=== PATIENT | female | born 1960 | race Caucasian/White ===

== ENCOUNTER 2016-11-18 17:04 | Emergency (ER) | payer BC ==
[~2016-11-18 17:04] MED LIST: Donnatal Elixir 16.2 MG/5 ML UDCUP ONE; Iopamidol 370 76% 100 ML VIAL ONE
[2016-11-18] MEDS ORDERED: Ondansetron ODT 4 MG TAB ONE (17:26)
[2016-11-18] MEDS ORDERED: Famotidine 20 MG TAB ONE (17:26)
[2016-11-18 17:38] LABS: #Basophils 0.1 thou/uL (0.0-0.2); #Eosinphils 0.4 thou/uL (0.0-0.7); #Lymphocytes 2.8 thou/uL (1.20-3.40); #Monocytes 0.5 thou/uL (0.11-0.59); #Neutrophils 3.6 thou/uL (1.40-6.50); %Basophils 1.6 % (0.0-1.0); %Eosinophils 5.8 % (0.0-10.0); %Lymphocytes 37.2 % (21.0-51.0); %Monocytes 7.3 % (0.0-10.0); Hemoglobin 11.7 g/dL (12.0-16.0); Mean Corpuscular HGB CONC 32.4 g/dL (32.0-36.0); Mean Corpuscular Hemoglobin 28.7 pg (27.0-31.0); Mean Corpuscular Volume 88.5 fl (81.0-99.0); Mean Platelet Volume 5.9 fL (7.4-10.4); Platelet Count 347 thou/uL (130-400); Red Blood Cell (RBC) Count 4.09 mill/uL (4.20-5.40); White Blood Cell (WBC) Count 7.4 thou/uL (4.8-10.8)
--- NOTE | 2016-11-18 17:57 | RAD ---
PORTABLE AP CHEST X-RAY 11/18/16 HISTORY: Small bowel obstruction. COMPARISON: 05/01/15. There is a metallic recording device again overlying the left mid lung zone. There is evidence of pr ior granulomatous disease. The cardiac silhouette and pulmonary vasculature are within normal limits . The lungs otherwise remain clear. Most superior aspect of each lung apex is excluded from view. Th ere has been no interval change from the prior exam. IMPRESSION: No acute cardiopulmonary process. POS: [facility]
[2016-11-18 18:02] LABS: Bilirubin Negative (Negative); Blood, Urine Negative (Negative); Glucose, Urine (Dipstick) Negative (Negative); Leukocyte Trace (Negative); Nitrite Negative (Negative); Protein, Urine (Dipstick) Negative (Neg-Trace); pH, Urine 7.5 (5.0-9.0)
[2016-11-18 18:04] LABS: Clarity Hazy (Clear)
[2016-11-18 18:04] LABS: ALT (SGPT) 11 U/L (0-55); AST (SGOT) 17 U/L (5-34); Albumin 4.2 g/dL (3.5-5.0); Alkaline Phosphatase 101 U/L (40-150); Amylase 26 U/L (25-125); Anion Gap 16 mmol/L (10-20); BUN (Urea Nitrogen) 15 mg/dL (9.8-20.1); Bilirubin, Direct 0.1 mg/dL (0.1-0.3); Bilirubin, Total Less than 0.3 mg/dL (0.2-1.2); Calc. Creatinine Clearance 0 mL/min (70-130); Calcium 9.5 mg/dL (7.8-10.44); Carbon Dioxide 23 mmol/L (22-29); Chloride 106 mmol/L (98-107); Estimated GFR-MDRD 76; Glucose 91 mg/dL (70-105); Lipase 13 U/L (8-78); Potassium 4.2 mmol/L (3.5-5.1); Protein, Total 6.6 g/dL (6.0-8.3); Sodium 141 mmol/L (136-145)
[2016-11-18 18:08] LABS: Bacteria/HPF Rare-Few HPF (None Seen); RBC/HPF 0-3 HPF (0-3); Squamous Epithelial 0-3 HPF (0-3)
[2016-11-18] MEDS ORDERED: Ketorolac Tromethamine 60 MG/2 ML VIAL ONE (18:27)
[2016-11-18] MEDS ORDERED: Donnatal Elixir 16.2 MG/5 ML UDCUP ONE (18:32)
[2016-11-18] MEDS ORDERED: Mag-Al Plus 1200 MG/1200 MG/120 MG/30 ML UDCUP ONE (18:33)
[2016-11-18] MEDS ORDERED: Lidocaine Viscous Sol 2% 15 ml UD Cup ONE (18:33)
[2016-11-18] MEDS ORDERED: Fentanyl 100 MCG/2 ML VIAL ONE ×2 (19:58→21:50)
--- NOTE | 2016-11-18 21:54 | CT ---
CT ABDOMEN AND PELVIS WITH ORAL AND IV CONTRAST 11/18/16 HISTORY: Right upper quadrant abdominal pain. FINDINGS: Comparison is made with the exam of 05/13/10. The lung bases are clear. There is a small hiatal hernia. The liver, spleen, pancreas, and adrenal g lands are unremarkable. The left kidney is normal. Postop changes of right partial nephrectomy is se en. The previously noted right renal mass has been resected. No free air, free fluid, or lymphadenopathy is noted in the abdomen or pelvis. The small bowel loops are not abnormally dilated. There are vascular calcifications without evidence of aneurysmal dilata tion of the abdominal aorta. The patient is post cholecystectomy. There are degenerative changes in the spine. No osteolytic or osteoblastic lesions are seen. A normal appearing appendix is present. IMPRESSION: 1. Hiatal hernia. 2. Status post partial right nephrectomy. 3. No evidence of acute process. POS: [facility]
--- NOTE | 2016-11-19 07:24 | RAD ---
ACUTE ABDOMINAL SERIES 11/18/16 HISTORY: Small bowel obstruction. CHEST X-RAY: Compared to study on 05/01/15. Previously noted metallic recording device lying the left lung is again present. There is evidence o f prior granulomatous disease. The lungs are clear. The cardiac silhouette and pulmonary vasculature are within normal limits. No other interval change. UPRIGHT AND SUPINE VIEWS OF THE ABDOMEN: Surgical clips overlie the right upper quadrant and medial aspect of the left mid abdomen. There are nonspecific mildly prominent loops of small bowel seen within the left lower quadrant. There is a s mall amount of retained fecal material in the ascending colon. Degenerative change are seen in the s pine. IMPRESSION: Mildly prominent gas filled loops of small bowel within the left lower quadrant. Findings are overal l nonspecific. If there is concern for bowel obstruction, followup abdominal radiographs can be perf ormed versus CT scan. POS: [facility]
== END 2016-11-18 22:12 | disposition home or self-care (01) ==
LOC: MADERS 17:04
DX: R10.11 Right upper quadrant pain (principal); Z87.891 Personal history of nicotine dependence; Z90.710 Acquired absence of both cervix and uterus
CPT/HCPCS: 36415; 74022; 74177; 80048; 80076; 81003; 81015; 82150; 83690; 85025; 96372; 96374; 96376; J1885; J3010; Q0162

== ENCOUNTER 2017-02-20 19:20 | Emergency (ER) | payer BC ==
--- NOTE | 2017-02-20 20:15 | RAD ---
EXAM: FOUR VIEWS LEFT KNEE 02/20/17 HISTORY: Injury and pain. COMPARISON: None. FINDINGS: No joint effusion. Joint spaces are preserved. No fractures or malalignment. IMPRESSION: No posttraumatic sequela. POS: [facility]
[2017-02-20] MEDS ORDERED: Ketorolac Tromethamine 60 MG/2 ML VIAL ONE (20:35)
[2017-02-20] MEDS ORDERED: Bacitracin Zinc 1 Packet ONE (20:36)
== END 2017-02-20 21:05 | disposition home or self-care (01) ==
LOC: MADERS 19:20
DX: S80.02XA Contusion of left knee, initial encounter (principal); F17.210 Nicotine dependence, cigarettes, uncomplicated; F98.8 Other specified behavioral and emotional disorders with onset usually occurring in childhood and adolescence; Z79.899 Other long term (current) drug therapy; W16.532A Jumping or diving into swimming pool striking wall causing other injury, initial encounter; Y92.34 Swimming pool (public) as the place of occurrence of the external cause
CPT/HCPCS: 96372; J1885

== ENCOUNTER 2017-03-30 06:56 | Emergency (ER) | payer BC ==
[2017-03-30] MEDS ORDERED: Sodium Chloride 0.9% 1,000 ML BAG ONE (07:21)
[2017-03-30 07:38] LABS: Clarity Clear (Clear); Glucose, Urine (Dipstick) Negative (Negative); Leukocyte Negative (Negative); Nitrite Negative (Negative); Protein, Urine (Dipstick) Negative (Neg-Trace)
[2017-03-30 07:39] LABS: Bilirubin Negative (Negative); Blood, Urine Negative (Negative)
[2017-03-30 07:42] LABS: Bacteria/HPF Rare-Few HPF (None Seen); RBC/HPF 0-3 HPF (0-3); Squamous Epithelial 0-3 HPF (0-3)
[2017-03-30] MEDS ORDERED: Ketorolac Tromethamine 30 MG/ML VIAL ONE (07:45)
[2017-03-30] MEDS ORDERED: Ondansetron HCl/PF 4 MG/2 ML Vial ONE (07:45)
[2017-03-30 07:48] LABS: #Basophils 0.2 thou/uL (0.0-0.2); #Eosinphils 0.2 thou/uL (0.0-0.7); #Lymphocytes 3.5 thou/uL (1.20-3.40); #Monocytes 0.7 thou/uL (0.11-0.59); %Basophils 1.8 % (0.0-1.0); %Eosinophils 2.2 % (0.0-10.0); %Lymphocytes 36.9 % (21.0-51.0); %Monocytes 6.8 % (0.0-10.0); %Neutrophils 52.3 % (42.0-75.0); Hemoglobin 12.4 g/dL (12.0-16.0); Mean Corpuscular HGB CONC 31.5 g/dL (32.0-36.0); Mean Corpuscular Hemoglobin 27.3 pg (27.0-31.0); Mean Corpuscular Volume 86.8 fl (81.0-99.0); Mean Platelet Volume 6.6 fL (7.4-10.4); Platelet Count 392 thou/uL (130-400); RBC Distribution Width 15.2 % (11.5-14.5); Red Blood Cell (RBC) Count 4.55 mill/uL (4.20-5.40); White Blood Cell (WBC) Count 9.5 thou/uL (4.8-10.8)
[2017-03-30 08:05] LABS: ALT (SGPT) 12 U/L (8-55); AST (SGOT) 13 U/L (5-34); Albumin 4.3 g/dL (3.5-5.0); Alkaline Phosphatase 108 U/L (40-150); Anion Gap 17 mmol/L (10-20); BUN (Urea Nitrogen) 18 mg/dL (9.8-20.1); Bilirubin, Total 0.4 mg/dL (0.2-1.2); Calc. Creatinine Clearance 0 mL/min (70-130); Calcium 9.5 mg/dL (7.8-10.44); Carbon Dioxide 24 mmol/L (22-29); Chloride 106 mmol/L (98-107); Estimated GFR-MDRD 73; Globulin 2.8 g/dL (2.4-3.5); Glucose 86 mg/dL (70-105); Potassium 4.2 mmol/L (3.5-5.1); Protein, Total 7.1 g/dL (6.0-8.3); Sodium 143 mmol/L (136-145)
--- NOTE | 2017-03-30 08:25 | CT ---
CT ABDOMEN AND PELVIS WITHOUT CONTRAST STONE PROTOCOL: HISTORY: Left upper quadrant pain radiating to the back that started this morning about 0300. 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 Diverticulosis. COMPARISON: CT abdomen and pelvis with contrast 11/18/16. FINDINGS: Similar appearance of the perifissure nodule right major fissure. No pericardial effusion. Surgical clips in the gallbladder fossa, proximal small bowel suture material as well as along the G E junction. There are partial right nephrectomy changes. No hydroureteral nephrosis or nephroureteral lithiasis. No secondary evidence of recently passed st one. No perinephric stranding. Severe degenerative disk space height loss of L4-5 and L5-S1 and T11-12. No suspicious lytic or hayes stic lesion of the skeleton otherwise. No dilated loops of large or small bowel. Appendix is felt to be seen in the right hemipelvis and a ppears normal. IMPRESSION: 1. No nephroureteral lithiasis or hydroureteral nephrosis. No secondary evidence of recently passe d stone. 2. No dilated loops of bowel to suggest obstruction. 3. No acute process within the abdomen or pelvis. POS: [facility]
[2017-03-30] MEDS ORDERED: Iopamidol 370 76% 100 ML VIAL ONE (10:02)
--- NOTE | 2017-03-30 10:43 | CT ---
CT OF THE ABDOMEN AND PELVIS WITH IV CONTRAST: INDICATION: History of left upper quadrant abdominal pain. The patient has a history of renal cell carcinoma re section from the right kidney. History of gastric bypass, cholecystectomy, and hysterectomy. CONTRAST: 100 cc of Isovue. COMPARISON: Prior CT exam dated 03/30/17 and 11/18/16. FINDINGS: There is a small-sized hiatal hernia. The gallbladder is surgically absent. There is postsurgical change from a partial right nephrectomy . The left kidney is normal-appearing. There is a 1.4 cm right-sided adrenal adenoma. There is postprocedural change of a gastric bypass. Spleen is normal-appearing. There are moderate calcifications involving the abdominopelvic vasculature. There are a few scattered diverticula involving the colon without evidence of active diverticulitis. The small bowel is normal caliber. The bladder, rectum, and perirectal soft tissues are unremarkable. There is scattered degenerative and osteoarthritic change. There is injection granulomata overlying the gluteal regions bilaterally. IMPRESSION: 1. No definite CT explanation for the patient's left upper quadrant abdominal pain. There is postp rocedural change of a gastric bypass. There is no evidence of bowel obstruction. 2. Postsurgical change of a cholecystectomy and partial right nephrectomy. No hydronephrosis is ev ident. 3. Right adrenal adenoma. 4. Hysterectomy. 5. Colonic diverticulosis without evidence of active diverticulitis. POS: [facility]
== END 2017-03-30 10:30 | disposition home or self-care (01) ==
LOC: MADERS 06:56
DX: R10.12 Left upper quadrant pain (principal); F17.210 Nicotine dependence, cigarettes, uncomplicated; Z79.899 Other long term (current) drug therapy
CPT/HCPCS: 74176; 74177; 80053; 81001; 85025; 96361; 96374; 96375; 96376; J1170; J1885; J2405; J7050

== ENCOUNTER 2017-04-01 08:50 | Emergency (ER) | payer BC ==
[~2017-04-01 08:50] MED LIST changes: -Donnatal Elixir 16.2 MG/5 ML UDCUP ONE; -Iopamidol 370 76% 100 ML VIAL ONE; +Sodium Chloride 0.9% 1,000 ML BAG ONE; +Sodium Chloride 0.9% 100 ML BAG ONE
[2017-04-01] MEDS ORDERED: Metoclopramide HCl 10 MG/2 ML VIAL ONE (09:52)
[2017-04-01] MEDS ORDERED: Ondansetron HCl/PF 4 MG/2 ML Vial ONE (09:52)
[2017-04-01] MEDS ORDERED: Ketorolac Tromethamine 30 MG/ML VIAL ONE (09:52)
[2017-04-01 10:09] LABS: Bacteria/HPF Rare-Few HPF (None Seen); Bilirubin Negative (Negative); Blood, Urine Negative (Negative); Clarity Hazy (Clear); Glucose, Urine (Dipstick) Negative (Negative); Leukocyte Negative (Negative); Nitrite Negative (Negative); Protein, Urine (Dipstick) Negative (Neg-Trace); RBC/HPF None Seen HPF (0-3); Specific Gravity, Urine 1.015 (1.005-1.030); Urobilinogen 0.2 mg/dL (0.2-1.0); WBC/HPF 0-3 HPF (0-3)
--- NOTE | 2017-04-01 10:18 | RAD ---
CHEST ONE VIEW: History: Left flank pain. Comparison: 05-01-15 FINDINGS: There is a recording device projecting over the left hemithorax. No free airspace opacity, pneumotho rax, or effusion. Granuloma project over the left upper lobe. IMPRESSION: No acute cardiopulmonary process. POS: [facility]
[2017-04-01 10:20] LABS: #Basophils 0.1 thou/uL (0.0-0.2); #Eosinphils 0.5 thou/uL (0.0-0.7); #Lymphocytes 2.7 thou/uL (1.20-3.40); #Monocytes 0.5 thou/uL (0.11-0.59); #Neutrophils 4.4 thou/uL (1.40-6.50); %Basophils 1.6 % (0.0-1.0); %Eosinophils 5.7 % (0.0-10.0); %Monocytes 6.2 % (0.0-10.0); %Neutrophils 53.5 % (42.0-75.0); Hemoglobin 11.9 g/dL (12.0-16.0); Mean Corpuscular HGB CONC 32.9 g/dL (32.0-36.0); Mean Corpuscular Hemoglobin 28.5 pg (27.0-31.0); Mean Corpuscular Volume 86.7 fl (81.0-99.0); Mean Platelet Volume 6.7 fL (7.4-10.4); Platelet Count 365 thou/uL (130-400); RBC Distribution Width 15.7 % (11.5-14.5); Red Blood Cell (RBC) Count 4.16 mill/uL (4.20-5.40); White Blood Cell (WBC) Count 8.3 thou/uL (4.8-10.8)
[2017-04-01 10:33] LABS: ALT (SGPT) 13 U/L (8-55); AST (SGOT) 13 U/L (5-34); Alkaline Phosphatase 105 U/L (40-150); Anion Gap 13 mmol/L (10-20); BUN (Urea Nitrogen) 17 mg/dL (9.8-20.1); Bilirubin, Total 0.3 mg/dL (0.2-1.2); CK (CPK) 54 U/L (29-168); Calc. Creatinine Clearance 0 mL/min (70-130); Calcium 9.1 mg/dL (7.8-10.44); Carbon Dioxide 26 mmol/L (22-29); Chloride 106 mmol/L (98-107); Estimated GFR-MDRD 82; Globulin 2.6 g/dL (2.4-3.5); Glucose 80 mg/dL (70-105); Lipase 11 U/L (8-78); Potassium 4.1 mmol/L (3.5-5.1); Protein, Total 6.6 g/dL (6.0-8.3); Sodium 141 mmol/L (136-145)
[2017-04-01 10:34] LABS: CKMB 0.9 ng/mL (0-6.6); Troponin I Less than 0.010 ng/mL (< 0.028)
[2017-04-01] MEDS ORDERED: cefTRIAXone\\ROCEPHIN 2 GM VIAL ONE ×2 (10:46)
[2017-04-01] MEDS ORDERED: metroNIDAZOLE 500 MG/100 ML BAG ONE (10:46)
== END 2017-04-01 13:35 | disposition home or self-care (01) ==
LOC: MADERS 08:50
DX: K57.92 Diverticulitis of intestine, part unspecified, without perforation or abscess without bleeding (principal); F17.210 Nicotine dependence, cigarettes, uncomplicated; Z79.899 Other long term (current) drug therapy
CPT/HCPCS: 71010; 80053; 81001; 82150; 82550; 82553; 83690; 84484; 85025; 87086; 94760; 96361; 96365; 96367; 96375; J0696; J1170; J1885; J2405; J2765; J7050

== ENCOUNTER 2017-07-23 21:23 | Emergency (ER) | payer BC ==
--- NOTE | 2017-07-23 22:45 | RAD ---
THREE VIEWS OF THE RIGHT ANKLE 07/23/17 INDICATION: Right ankle injury. IMPRESSION: No acute fracture or subluxation. COMMENTS: The ankle mortise and talar dome are preserved. Small subchondral cystic abnormality is seen involvi ng the medial talar dome likely reflecting a small osteochondral defect. There is soft tissue swellin g overlying the lateral malleolus. Hindfoot appears within normal limits. POS: [facility]
== END 2017-07-23 22:15 | disposition home or self-care (01) ==
LOC: MADERS 21:23
DX: S93.401A Sprain of unspecified ligament of right ankle, initial encounter (principal); F17.210 Nicotine dependence, cigarettes, uncomplicated; X50.1XXA Overexertion from prolonged static or awkward postures, initial encounter

== ENCOUNTER 2018-02-16 06:41 | Emergency (ER) | payer BC ==
[2018-02-16] MEDS ORDERED: Diazepam 5 MG TAB ONE (07:36)
== END 2018-02-16 08:25 | disposition home or self-care (01) ==
LOC: MADERS 06:41
DX: M62.838 Other muscle spasm (principal); F17.210 Nicotine dependence, cigarettes, uncomplicated; F98.8 Other specified behavioral and emotional disorders with onset usually occurring in childhood and adolescence; Z79.899 Other long term (current) drug therapy; Z79.891 Long term (current) use of opiate analgesic
CPT/HCPCS: 99283

== ENCOUNTER 2018-08-15 18:05 | Emergency (ER) | payer BC ==
[2018-08-15] MEDS ORDERED: Lidocaine 2% w/Epinephrine 1:200K 20 ML VIAL ONE (18:20)
[2018-08-15] MEDS ORDERED: Adacel (T-DAP) 0.5 ML SYRINGE ONE (18:20)
[2018-08-15] MEDS ORDERED: Bacitracin Zinc 1 Packet ONE (18:28)
== END 2018-08-15 18:42 | disposition home or self-care (01) ==
LOC: MADERS 18:05
DX: S61.411A Laceration without foreign body of right hand, initial encounter (principal); F98.8 Other specified behavioral and emotional disorders with onset usually occurring in childhood and adolescence; F17.210 Nicotine dependence, cigarettes, uncomplicated; Z79.899 Other long term (current) drug therapy; Z23 Encounter for immunization; W26.8XXA Contact with other sharp object(s), not elsewhere classified, initial encounter; Y92.009 Unspecified place in unspecified non-institutional (private) residence as the place of occurrence of the external cause
CPT/HCPCS: 12001; 90471; 90715

== ENCOUNTER 2019-07-16 13:02 | Emergency (ER) | payer BC ==
[2019-07-16 13:57] LABS: #Basophils 0.1 thou/uL (0.0-0.2); #Eosinphils 0.3 thou/uL (0.0-0.7); #Lymphocytes 1.5 thou/uL (1.20-3.40); #Monocytes 0.5 thou/uL (0.11-0.59); #Neutrophils 5.5 thou/uL (1.40-6.50); %Basophils 1.9 % (0.0-1.0); %Eosinophils 3.4 % (0.0-10.0); %Lymphocytes 19.2 % (21.0-51.0); %Monocytes 6.1 % (0.0-10.0); %Neutrophils 69.4 % (42.0-75.0); Hemoglobin 13.9 g/dL (12.0-16.0); Mean Corpuscular HGB CONC 31.4 g/dL (32.0-36.0); Mean Corpuscular Hemoglobin 30.9 pg (27.0-31.0); Mean Corpuscular Volume 98.5 fL (78.0-98.0); Mean Platelet Volume 6.4 fL (7.4-10.4); Platelet Count 308 thou/uL (130-400); RBC Distribution Width 11.7 % (11.5-14.5); Red Blood Cell (RBC) Count 4.49 mill/uL (4.20-5.40); White Blood Cell (WBC) Count 7.9 thou/uL (4.8-10.8)
[2019-07-16 14:16] LABS: ALT (SGPT) 14 U/L (8-55); AST (SGOT) 16 U/L (5-34); Alkaline Phosphatase 86 U/L (40-110); Anion Gap 14 mmol/L (10-20); BUN (Urea Nitrogen) 15 mg/dL (9.8-20.1); Bilirubin, Total 0.3 mg/dL (0.2-1.2); Calc. Creatinine Clearance 0 mL/min (70-130); Calcium 8.9 mg/dL (7.8-10.44); Carbon Dioxide 24 mmol/L (23-31); Chloride 108 mmol/L (98-107); Estimated GFR-MDRD 59; Globulin 2.1 g/dL (2.4-3.5); Glucose 90 mg/dL (80-115); Potassium 4.8 mmol/L (3.5-5.1); Protein, Total 6.1 g/dL (6.0-8.3); Sodium 141 mmol/L (136-145)
--- NOTE | 2019-07-16 14:16 | RAD ---
Portable frontal chest radiograph: 07/16/2019 COMPARISON: 04/01/2017 HISTORY: Chest pain FINDINGS: Lungs are clear. Heart and mediastinal contours are stable. Loop recorder overlies the left hemithorax. IMPRESSION: No acute findings.
--- NOTE | 2019-07-16 14:52 | CT ---
Head CT without contrast 07/16/2019: COMPARISON: 06/09/2009 HISTORY: Seizure TECHNIQUE: Axial CT imaging at 5 mm intervals from vertex through skull base without contrast FINDINGS: The visualized paranasal sinuses and mastoid air cells are well aerated. No displaced rafat rial fracture. No intracranial hemorrhage, midline shift, mass effect, or ventricular enlargement. IMPRESSION: No acute findings.
== END 2019-07-16 16:35 | disposition home or self-care (01) ==
LOC: MADERS 13:02
DX: G40.909 Epilepsy, unspecified, not intractable, without status epilepticus (principal)
CPT/HCPCS: 36415; 70450; 71045; 80053; 83880; 84484; 85025; 93005

== ENCOUNTER 2019-07-19 15:46 | Outpatient (CLI) | payer BC ==
--- NOTE | 2019-07-19 16:12 | RAD ---
Right shoulder 3 views HISTORY: Right shoulder pain. FINDINGS: Acromioclavicular and glenohumeral alignment are maintained. Mild osteophytosis. No acute f racture, dislocation, or aggressive osseous erosions. IMPRESSION: Mild osteoarthritic changes right shoulder. No acute osseous abnormalities are demonstrat ed.
== END 2019-07-19 15:47 | disposition home or self-care (01) ==
LOC: MADRAD 15:46
PROVIDERS: ATTEND Family Medicine
DX: M25.511 Pain in right shoulder (principal); M19.011 Primary osteoarthritis, right shoulder

== ENCOUNTER 2020-11-18 19:23 | Emergency (ER) | payer BC, SELFPAY ==
[~2020-11-18 19:23] MED LIST changes: +Iopamidol 370 76% 100 ML VIAL ONE; -Sodium Chloride 0.9% 100 ML BAG ONE
[2020-11-18] MEDS ORDERED: Ondansetron PF 4 MG/2 ML Vial ONE (19:57)
[2020-11-18 19:58] LABS: #Basophils 0.2 thou/uL (0.0-0.2); #Eosinphils 0.4 thou/uL (0.0-0.7); #Lymphocytes 2.2 thou/uL (1.20-3.40); #Monocytes 0.5 thou/uL (0.11-0.59); #Neutrophils 3.8 thou/uL (1.40-6.50); %Basophils 2.1 % (0.0-1.0); %Eosinophils 5.3 % (0.0-10.0); %Lymphocytes 31.7 % (21.0-51.0); %Monocytes 7.4 % (0.0-10.0); %Neutrophils 53.5 % (42.0-75.0); Mean Corpuscular Hemoglobin 31.8 pg (27.0-31.0); Mean Corpuscular Volume 99.5 fL (78.0-98.0); Platelet Count 321 thou/uL (130-400); RBC Distribution Width 12.2 % (11.5-14.5); Red Blood Cell (RBC) Count 4.41 mill/uL (4.20-5.40); White Blood Cell (WBC) Count 7.1 thou/uL (4.8-10.8)
[2020-11-18 20:13] LABS: ALT (SGPT) 23 U/L (8-55); AST (SGOT) 26 U/L (5-34); Albumin 4.4 g/dL (3.4-4.8); Alcohol Less than 10 mg/dL (Less than 10); Alkaline Phosphatase 96 U/L (40-110); Anion Gap 15 mmol/L (10-20); BUN (Urea Nitrogen) 18 mg/dL (9.8-20.1); Bilirubin, Total 0.3 mg/dL (0.2-1.2); Calc. Creatinine Clearance 0 mL/min (70-130); Calcium 9.3 mg/dL (7.8-10.44); Carbon Dioxide 23 mmol/L (23-31); Chloride 107 mmol/L (98-107); Globulin 2.5 g/dL (2.4-3.5); Glucose 80 mg/dL (80-115); Protein, Total 6.9 g/dL (5.8-8.1); Sodium 141 mmol/L (136-145)
[2020-11-18] MEDS ORDERED: Ketorolac Tromethamine 30 MG/ML VIAL ONE (21:24)
[2020-11-18 21:52] LABS: Bilirubin Negative (Negative); Blood, Urine Negative (Negative); Clarity Clear (Clear); Glucose, Urine (Dipstick) Negative (Negative); Ketone, Urine Negative (Negative); Leukocyte Small (Negative); Nitrite Negative (Negative); Protein, Urine (Dipstick) Negative (Neg-Trace); Urobilinogen 0.2 mg/dL (Less than 2)
[2020-11-18 21:56] LABS: Bacteria/HPF Rare-Few HPF (None Seen); RBC/HPF None Seen HPF (0-3); Squamous Epithelial 0-3 HPF (0-3)
[2020-11-18] MEDS ORDERED: Cyclobenzaprine 10 MG TAB ONE (22:01)
== END 2020-11-18 22:04 | disposition home or self-care (01) ==
LOC: MADERS 19:23
DX: S06.0X0A Concussion without loss of consciousness, initial encounter (principal); S30.1XXA Contusion of abdominal wall, initial encounter; K21.9 Gastro-esophageal reflux disease without esophagitis; F17.290 Nicotine dependence, other tobacco product, uncomplicated; Z79.899 Other long term (current) drug therapy; W55.12XA Struck by horse, initial encounter
CPT/HCPCS: 70450; 71260; 72125; 74177; 80053; 80307; 81003; 81015; 85025; 94760; 96374; 96375; J1885; J2405; J7050; Q9967

== ENCOUNTER 2021-06-02 13:33 | Emergency (ER) | payer SELFPAY ==
[2021-06-02 14:06] LABS: #Basophils 0.2 thou/uL (0.0-0.2); #Eosinphils 0.4 thou/uL (0.0-0.7); #Lymphocytes 2.7 thou/uL (1.20-3.40); #Monocytes 0.7 thou/uL (0.11-0.59); #Neutrophils 4.9 thou/uL (1.40-6.50); %Basophils 1.8 % (0.0-1.0); %Eosinophils 4.1 % (0.0-10.0); %Monocytes 7.7 % (0.0-10.0); %Neutrophils 55.4 % (42.0-75.0); Hemoglobin 14.5 g/dL (12.0-16.0); Mean Corpuscular HGB CONC 31.9 g/dL (32.0-36.0); Mean Corpuscular Hemoglobin 31.1 pg (27.0-31.0); Mean Corpuscular Volume 97.5 fL (78.0-98.0); Mean Platelet Volume 6.5 fL (7.4-10.4); Platelet Count 347 thou/uL (130-400); RBC Distribution Width 12.2 % (11.5-14.5); Red Blood Cell (RBC) Count 4.65 mill/uL (4.20-5.40); White Blood Cell (WBC) Count 8.8 thou/uL (4.8-10.8)
[2021-06-02 14:20] LABS: ALT (SGPT) 17 U/L (8-55); AST (SGOT) 22 U/L (5-34); Alkaline Phosphatase 102 U/L (40-110); Anion Gap 14 mmol/L (10-20); BUN (Urea Nitrogen) 14 mg/dL (9.8-20.1); Bilirubin, Total 0.4 mg/dL (0.2-1.2); CK (CPK) 161 U/L (29-168); Calc. Creatinine Clearance 0 mL/min (70-130); Calcium 9.7 mg/dL (7.8-10.44); Carbon Dioxide 24 mmol/L (23-31); Chloride 106 mmol/L (98-107); Globulin 1.9 g/dL (2.4-3.5); Glucose 100 mg/dL (80-115); Potassium 4.1 mmol/L (3.5-5.1); Protein, Total 5.9 g/dL (5.8-8.1); Sodium 140 mmol/L (136-145)
[2021-06-02 14:22] LABS: CKMB 2.3 ng/mL (0-6.6)
[2021-06-02] MEDS ORDERED: Lidocaine Viscous Sol 2% 15 ml UD Cup ONE (14:35)
[2021-06-02] MEDS ORDERED: Mag-Al Plus 1200 MG/1200 MG/120 MG/30 ML UDCUP ONE (14:35)
== END 2021-06-02 15:24 | disposition home or self-care (01) ==
LOC: MADERS 13:33
DX: K27.9 Peptic ulcer, site unspecified, unspecified as acute or chronic, without hemorrhage or perforation (principal); R07.2 Precordial pain; F17.200 Nicotine dependence, unspecified, uncomplicated; Z79.899 Other long term (current) drug therapy
CPT/HCPCS: 71045; 80053; 82550; 82553; 83880; 84484; 85025; 93005; 94760

== ENCOUNTER 2023-07-26 09:39 | Outpatient (CLI) | payer MEDICARE | END 2023-07-26 09:40 | disposition home or self-care (01) | LOC: MADRAD 09:39 | PROVIDERS: ATTEND Internal Medicine | DX: Z72.0 Tobacco use (principal); K44.9 Diaphragmatic hernia without obstruction or gangrene | CPT/HCPCS: 71046 ==

== ENCOUNTER 2023-07-26 11:57 | Outpatient (CLI) | payer MEDICARE ==
[2023-07-26 12:15] LABS: Cardiac Risk 2.9 (Less than 4.5)
== END 2023-07-26 11:58 | disposition home or self-care (01) ==
LOC: MADLABBHPM 11:57
PROVIDERS: ATTEND Internal Medicine
DX: I25.10 Atherosclerotic heart disease of native coronary artery without angina pectoris (principal)
CPT/HCPCS: 80061